=== PATIENT | female | born 1940 | race Caucasian/White ===

== ENCOUNTER 2019-02-19 09:15 | Emergency (ER) | payer MEDICARE, BC ==
[2019-02-19] MEDS ORDERED: Sodium Chloride 0.9% 10 ML Syringe FLUSH PRN ×2 (09:34→09:40)
[2019-02-19] MEDS ORDERED: Ondansetron 4 MG/2 ML SDV IVPUSH ONE (09:34)
[2019-02-19] MEDS ORDERED: Sodium Chloride 0.9% 1,000 ML IV STA (09:34)
[2019-02-19] MEDS ORDERED: HYDROmorphone 0.5 MG/0.5 ML Syringe IVPUSH ONE ×2 (09:35→12:23)
[2019-02-19] MEDS ORDERED: Diatrizoate Meglumine/Diatrizoate Sodium 37% 120 ML Bottle PO ONE (09:40)
[2019-02-19] MEDS ORDERED: Iopamidol 612 MG/ML 100 ML Bottle IVPUSH ONE (09:40)
--- NOTE | 2019-02-19 11:56 | CT ---
CT abdomen and pelvis Technique: Multiple axial sections were obtained from above the dome of the diaphragm inferiorly through the pubic symphysis. Intravenous and oral contrast was utilized. Delayed images were also obtained through the bladder. Comparison: No prior CT abdomen or pelvis exam is available, previous right upper quadrant abdominal ultrasound of 07/01/10 is available. Findings: Visualized lung bases show nothing acute. Contrast noted within the distal esophagus with small hiatal hernia. Liver shows a cyst within the posterior left lobe measuring 4.0 cm. No additional liver abnormality is appreciated. Surgical clips are noted from prior cholecystectomy. Liver shows no focal abnormality. Adrenal glands show no nodule. Kidneys show symmetric contrast enhancement. Cyst is noted within the left kidney measuring 1.6 cm. No additional abnormalities are seen within the kidneys. Adrenal glands show no nodule. Pancreas is within normal limits. Aorta shows no aneurysm with atherosclerotic calcification being seen. No retroperitoneal adenopathy is seen. No mesenteric abnormalities are seen. No pelvic mass or adenopathy is seen. No free fluid or inflammatory change is seen. Appendix not visualized with certainty. No free fluid or inflammatory change is seen. Delayed images show contrast within the ureters which show no dilatation. Contrast is noted within the bladder. There is low density filling defect posteriorly on the left side within the contrast-filled bladder. Uncertain if this represents sediment or intraluminal bladder mass. Bone window settings were reviewed which show mild degenerative change within the spine. No acute osseous finding is appreciated. Impression: 1. Small hiatal hernia with gastroesophageal reflux of contrast. 2. Filling defect within the contrast filled bladder on the left side. As mentioned above, uncertain if this is due to layering sediment or represents bladder mass. 3. Other findings as noted above believed to be incidental. Nothing acute is otherwise seen. Diagnostic code #9 This report was dictated in [place] Standard Time
--- NOTE | 2019-02-19 13:32 | EDM.PDOC ---
ED HPI GENERAL MEDICAL PROBLEM - General Chief Complaint: Abdominal Pain Stated Complaint: ABDOMINAL PAIN Time Seen by Provider: 02/19/19 09:26 Source of Information: Reports: Patient History Limitations: Reports: No Limitations - History of Present Illness INITIAL COMMENTS - FREE TEXT/NARRATIVE: The patient presents with upper abdominal pain, nausea, vomiting and diarrhea. This all started this weekend. She developed nausea, vomiting and some diarrhea. She then developed pain in her upper abdomen today. She has not been around anyone who is sick and she has not eaten any bad food. She does not have a gallbladder. She still will get pain in the upper abdomen at times. This is not related to her current symptoms. She has no fever, chills or cough. She has no chest pain or shortness of breath. Onset: Gradual Duration: Day(s): (3) Location: Reports: Abdomen Quality: Reports: Sharp Severity: Moderate Improves with: Reports: None Worsens with: Reports: None Associated Symptoms: Reports: Nausea/Vomiting. Denies: Chest Pain, Cough, Fever /Chills, Headaches, Shortness of Breath Abdominal Pain Score (Numeric/FACES): 6 - Related Data Allergies Allergy/AdvReac Type Severity Reaction Status Date / Time rosuvastatin [From Crestor] Allergy Body Aches Verified 02/19/19 09:25 Home Meds: Home Meds Fluticasone Propionate [Flonase Allergy Relief] 1 spray NASBOTH ASDIRECTED PRN 02/19/19 [History] Hydrocodone/Acetaminophen [Hydrocodon-Acetaminophen 5-325] 1 - 2 each PO Q6HR PRN #10 tablet 02/19/19 [Rx] Ondansetron [Zofran ODT] 4 mg PO Q6H PRN #20 tab.dis 02/19/19 [Rx] Pravastatin Sodium 20 mg PO DAILY 02/19/19 [History] Past Medical History HEENT History: Reports: Cataract, Impaired Vision, Sinusitis Other HEENT History: wears eyeglasses. Allergies. Cardiovascular History: Reports: High Cholesterol Gastrointestinal History: Reports: GERD Genitourinary History: Reports: UTI, Recurrent [employer] History: Reports: - Infectious Disease History Infectious Disease History: Reports: Chicken Pox, Measles, Mumps - Past Surgical History HEENT Surgical History: Reports: Cataract Surgery GI Surgical History: Reports: Cholecystectomy, Colonoscopy Musculoskeletal Surgical History: Reports: Knee Replacement Social & Family History - Tobacco Use Smoking Status *Q: Never Smoker Second Hand Smoke Exposure: No - Caffeine Use Caffeine Use: Reports: Coffee, Soda - Recreational Drug Use Recreational Drug Use: No ED ROS GENERAL - Review of Systems Review Of Systems: See Below Constitutional: Reports: No Symptoms HEENT: Reports: No Symptoms Respiratory: Reports: No Symptoms Cardiovascular: Reports: No Symptoms Endocrine: Reports: No Symptoms GI/Abdominal: Reports: Abdominal Pain, Diarrhea, Nausea, Vomiting : Reports: No Symptoms Musculoskeletal: Reports: No Symptoms ED EXAM, GI/ABD - Physical Exam Exam: See Below Exam Limited By: No Limitations General Appearance: Alert, No Apparent Distress Ears: Normal External Exam Nose: Normal Inspection Head: Atraumatic, Normocephalic Neck: Normal Inspection Respiratory/Chest: No Respiratory Distress, Lungs Clear, Normal Breath Sounds Cardiovascular: Regular Rate, Rhythm, No Edema, No Murmur GI/Abdominal Exam: Soft, No Organomegaly, No Mass, Tender (Mild tenderness to the upper abdomen) Back Exam: Normal Inspection Course - Vital Signs Last Recorded V/S: Last Vital Signs Temp 97.2 F 02/19/19 09:20 Pulse 74 02/19/19 09:20 Resp 18 02/19/19 09:20 BP 139/71 02/19/19 09:20 Pulse Ox 96 02/19/19 09:20 - Orders/Labs/Meds Orders: Active Orders 24 hr Category Date Time Status Peripheral IV Care [RC] . DIRECTED Care 02/19/19 09:35 Active Sodium Chloride 0.9% [Saline Flush] Med 02/19/19 09:34 Active 10 ml FLUSH ASDIRECTED PRN Sodium Chloride 0.9% [Saline Flush] Med 02/19/19 09:40 Active 10 ml FLUSH ONETIME PRN ED Antiemetic Medication Reflex [OM.PC] Stat Oth 02/19/19 09:34 Ordered Peripheral IV Insertion Adult [OM.PC] Stat Oth 02/19/19 09:34 Ordered Medication Orders Sodium Chloride (Saline Flush) 10 ml FLUSH ASDIRECTED PRN PRN Reason: Keep Vein Open Last Admin: 02/19/19 09:35 Dose: 10 ml Sodium Chloride (Saline Flush) 10 ml FLUSH ONETIME PRN PRN Reason: IV FLUSH Last Admin: 02/19/19 11:08 Dose: 10 ml Labs: Laboratory Tests 02/19/19 02/19/19 02/19/19 Range/Units 09:35 09:35 11:55 WBC 5.84 (3.98-10.04) K/mm3 RBC 4.85 (3.98-5.22) M/mm3 Hgb 15.2 (11.2-15.7) gm/dl Hct 43.8 (34.1-44.9) % MCV 90.3 (79.4-94.8) fl MCH 31.3 (25.6-32.2) pg MCHC 34.7 (32.2-35.5) g/dl RDW Std Deviation 41.1 (36.4-46.3) fL Plt Count 179 L (182-369) K/mm3 MPV 9.9 (9.4-12.3) fl Neut % (Auto) 82.8 H (34.0-71.1) % Lymph % (Auto) 12.0 L (19.3-51.7) % [place] % (Auto) 4.6 L (4.7-12.5) % Eos % (Auto) 0.2 L (0.7-5.8) Baso % (Auto) 0.2 (0.1-1.2) % Neut # (Auto) 4.84 (1.56-6.13) K/mm3 Lymph # (Auto) 0.70 L (1.18-3.74) K/mm3 [place] # (Auto) 0.27 (0.24-0.36) K/mm3 Eos # (Auto) 0.01 L (0.04-0.36) K/mm3 Baso # (Auto) 0.01 (0.01-0.08) K/mm3 Sodium 142 (136-145) mEq/L Potassium 3.5 (3.5-5.1) mEq/L Chloride 104 (98-107) mEq/L Carbon Dioxide 25 (21-32) mEq/L Anion Gap 16.5 H (5-15) BUN 12 (7-18) mg/dL Creatinine 0.7 (0.55-1.02) mg/dL Est Cr Clr Drug Dosing 51.54 mL/min Estimated GFR (MDRD) > 60 (>60) mL/min BUN/Creatinine Ratio 17.1 (14-18) Glucose 139 H (83-115) mg/dL Calcium 8.9 (8.5-10.1) mg/dL Total Bilirubin 0.5 (0.2-1.0) mg/dL AST 23 (15-37) U/L ALT 37 (14-59) U/L Alkaline Phosphatase 55 (46-116) U/L Total Protein 7.1 (6.4-8.2) g/dl Albumin 3.8 (3.4-5.0) g/dl Globulin 3.3 gm/dL Albumin/Globulin Ratio 1.2 (1-2) Lipase 87 (73-393) U/L Urine Color Yellow (Yellow) Urine Appearance Clear (Clear) Urine pH 6.5 (5.0-8.0) Ur Specific [place] 1.015 (1.005-1.030) Urine Protein Negative (Negative) Urine Glucose (UA) Negative (Negative) Urine Ketones 1+ H (Negative) Urine Occult Blood Trace-intact H (Negative) Urine Nitrite Negative (Negative) Urine Bilirubin Negative (Negative) Urine Urobilinogen 0.2 (0.2-1.0) Ur Leukocyte Esterase Negative (Negative) Urine RBC 5-10 H (0-5) /hpf Urine WBC 0-5 (0-5) /hpf Ur Squamous Epith Cells 0-5 (0-5) /hpf Amorphous Sediment Few H (NOT SEEN) /hpf Urine Bacteria Few (FEW) /hpf Urine Mucus Not seen (FEW) /hpf Meds: Medications Generic Name Dose Route Start Last Admin Trade Name Freq PRN Reason Stop Dose Admin Sodium Chloride 10 ml 02/19/19 09:34 02/19/19 09:35 Saline Flush FLUSH 10 ml ASDIRECTED PRN Administration Keep Vein Open Sodium Chloride 10 ml 02/19/19 09:40 02/19/19 11:08 Saline Flush FLUSH 10 ml ONETIME PRN Administration IV FLUSH Discontinued Medications Generic Name Dose Route Start Last Admin Trade Name Freq PRN Reason Stop Dose Admin Diatrizoate Meglum/Diatrizoate Sod 120 ml 02/19/19 09:40 02/19/19 11:08 Gastrografin 37% PO 02/19/19 09:41 90 ml ONETIME ONE Administration Hydromorphone HCl 0.25 mg 02/19/19 09:35 02/19/19 09:47 Dilaudid IVPUSH 02/19/19 09:36 0.25 mg ONETIME ONE Administration Hydromorphone HCl 0.25 mg 02/19/19 12:23 02/19/19 12:56 Dilaudid IVPUSH 02/19/19 12:24 0.25 mg ONETIME ONE Administration Sodium Chloride 1,000 mls @ 1,000 mls/hr 02/19/19 09:34 02/19/19 09:49 Normal Saline IV 02/19/19 10:33 1,000 mls/hr .BOLUS STA Administration Iopamidol 100 ml 02/19/19 09:40 02/19/19 11:08 Isovue-300 (61%) IVPUSH 02/19/19 09:41 100 ml ONETIME ONE Administration Ondansetron HCl 4 mg 02/19/19 09:34 02/19/19 09:45 Zofran IVPUSH 02/19/19 09:35 4 mg ONETIME ONE Administration - Re-Assessments/Exams Free Text/Narrative Re-Assessment/Exam: 02/19/19 14:08 I ordered an IV NS 1L bolus, zofran 4mg IV, dilaudid 0.25mg IV, labs, UA and a CT of her abdomen and pelvis. Her CBC looks good. Her glucose is elevated at 139. Her anion gap is elevated at 16.5. Her UA shows no UTI. Her CT shows small hiatal hernia within the gastroesophageal reflux of contrast. Filling defect within the contrast filled bladder on the left side. As mentioned above , uncertain if this is due to layering sediment or represents bladder mass. Other findings as noted above believed to be incidental. Nothing acute is otherwise seen. I did an US and there was no bladder mass but there was small amount of debris. Departure - Departure Time of Disposition: 13:30 Disposition: Home, Self-Care 01 Condition: Good Clinical Impression: Gastroenteritis - Discharge Information *PRESCRIPTION DRUG MONITORING PROGRAM REVIEWED*: No *COPY OF PRESCRIPTION DRUG MONITORING REPORT IN PATIENT BRAULIO: No Prescriptions: Hydrocodone/Acetaminophen [Hydrocodon-Acetaminophen 5-325] 1 - 2 each PO Q6HR PRN #10 tablet PRN Reason: Pain Ondansetron [Zofran ODT] 4 mg PO Q6H PRN #20 tab.dis PRN Reason: Nausea\vomiting Instructions: Viral Gastroenteritis, Adult, [id number] Referrals: PCP,None [Primary Care Provider] - Forms: ED Department Discharge Additional Instructions: Drink plenty of fluids and advance your diet as tolerated. Take the zofran every 6 hours as needed for nausea and vomiting. Take the hydrocodone as needed for pain. Please return if you are worse. Sepsis Event Note - Evaluation Sepsis Screening Result: No Definite Risk - Focused Exam Vital Signs: Vital Signs Temp Pulse Resp BP Pulse Ox 02/19/19 09:20 97.2 F 74 18 139/71 96 Date Exam was Performed: 02/19/19 Time Exam was Performed: 14:05 - My Orders Last 24 Hours: My Active Orders 02/19/19 09:34 Sodium Chloride 0.9% [Saline Flush] 10 ml FLUSH ASDIRECTED PRN ED Antiemetic Medication Reflex [OM.PC] Stat Peripheral IV Insertion Adult [OM.PC] Stat 02/19/19 09:35 Peripheral IV Care [RC] . DIRECTED 02/19/19 09:40 Sodium Chloride 0.9% [Saline Flush] 10 ml FLUSH ONETIME PRN - Assessment/Plan Last 24 Hours: My Active Orders 02/19/19 09:34 Sodium Chloride 0.9% [Saline Flush] 10 ml FLUSH ASDIRECTED PRN ED Antiemetic Medication Reflex [OM.PC] Stat Peripheral IV Insertion Adult [OM.PC] Stat 02/19/19 09:35 Peripheral IV Care [RC] . DIRECTED 02/19/19 09:40 Sodium Chloride 0.9% [Saline Flush] 10 ml FLUSH ONETIME PRN
--- NOTE | 2019-02-19 14:01 | US ---
Pelvic ultrasound limited: Multiple real-time images of the bladder were obtained. No intraluminal abnormality is seen as questioned on prior CT exam. There does appear to be some debris in this area. This appears to be in the dependent portion of the bladder on supine positioning. Impression: 1. Small amount of debris seen posteriorly. No bladder mass is seen. Diagnostic code #2 This report was dictated in [place] Standard Time
== END 2019-02-19 13:50 | disposition home or self-care (01) ==
LOC: JD.ED 09:15
DX: K52.9 Noninfective gastroenteritis and colitis, unspecified (principal); E78.00 Pure hypercholesterolemia, unspecified; Z90.49 Acquired absence of other specified parts of digestive tract; Z88.8 Allergy status to other drugs, medicaments and biological substances; Z79.899 Other long term (current) drug therapy
CPT/HCPCS: 36415; 74177; 76857; 80053; 81001; 83690; 85025; 96361; 96374; 96375; 96376; 99284; J1170; J2405; J7030; Q9963; Q9967; 99283

== ENCOUNTER 2020-01-11 07:59 | Day surgery (SDC) | payer MEDICARE, BC ==
[~2020-01-11 07:59] MED LIST: Lactated Ringers 1,000 ML IV SCH; Lidocaine 1%/Sod Bicarbonate in NS 8.4% 1 ML Syringe IDERM PRN; Sodium Chloride 0.9% 10 ML Syringe FLUSH PRN
--- NOTE | 2020-01-11 08:21 | PCM.PREANE ---
Preanesthetic Assessment - Procedure Proposed Procedure: Colonoscopy - Anesthesia/Transfusion/Family Hx Anesthesia History: Prior Anesthesia Without Reaction Family History of Anesthesia Reaction: No - Review of Systems General: No Symptoms Pulmonary: No Symptoms Cardiovascular: No Symptoms Gastrointestinal: Other (GERD, no symptoms today. ) Neurological: Pre-Existing Deficit (Balance Disorder/Dizziness) Other: Reports: Sinus Problem (Allergic Rhinitis) - Physical Assessment NPO Status Date: 01/10/20 NPO Status Time: 23:00 Vital Signs: Last Vital Signs Temp 36.8 C 01/11/20 07:55 Pulse 62 01/11/20 07:55 Resp 16 01/11/20 07:55 BP 133/58 L 01/11/20 07:55 Pulse Ox 96 01/11/20 07:55 Height: 1.6 m Weight: 63.957 kg ASA Class: 2 Mental Status: Alert & Oriented x3 Airway Class: Mallampati = 2 Dentition: Reports: Partial (Upper) Thyro-Mental Finger Breadths: 2 Mouth Opening Finger Breadths: 3 ROM/Head Extension: Full Lungs: Clear to Auscultation, Normal Respiratory Effort Cardiovascular: Regular Rate, Regular Rhythm - Allergies Allergies/Adverse Reactions: Allergies Allergy/AdvReac Type Severity Reaction Status Date / Time guaifenesin [From Mucinex] Allergy Vomiting Verified 01/10/20 13:53 rosuvastatin [From Crestor] Allergy Body Aches Verified 01/10/20 13:53 - Acknowledgements Anesthesia Type Planned: MAC Pt an Appropriate Candidate for the Planned Anesthesia: Yes Alternatives and Risks of Anesthesia Discussed w Pt/Guardian: Yes Pt/Guardian Understands and Agrees with Anesthesia Plan: Yes PreAnesthesia Questionnaire HEENT History: Reports: Allergic Rhinitis, Cataract, Impaired Vision, Sinusitis Other HEENT History: wears glasses, bilateral dry eyes, has partial Cardiovascular History: Reports: High Cholesterol Respiratory History: Reports: None Gastrointestinal History: Reports: GERD Genitourinary History: Reports: UTI, Recurrent [employer] History: Reports: , Other (See Below) Other OB/BYN History: post menopausal Musculoskeletal History: Reports: Other (See Below) Other Musculoskeletal History: osteopenia, foot pain Neurological History: Reports: Other (See Below) Other Neuro History: balance disorder, dizziness Psychiatric History: Reports: None Endocrine/Metabolic History: Reports: None Hematologic History: Reports: None Immunologic History: Reports: None Oncologic (Cancer) History: Reports: None Dermatologic History: Reports: None - Infectious Disease History Infectious Disease History: Reports: None - Past Surgical History HEENT Surgical History: Reports: Cataract Surgery Cardiovascular Surgical History: Reports: None Respiratory Surgical History: Reports: None GI Surgical History: Reports: Cholecystectomy, Colonoscopy Female Surgical History: Reports: None Male Surgical History: Reports: None Endocrine Surgical History: Reports: None Neurological Surgical History: Reports: None Musculoskeletal Surgical History: Reports: Knee Replacement Oncologic Surgical History: Reports: None Dermatological Surgical History: Reports: None - SUBSTANCE USE Tobacco Use Status *Q: Never Tobacco User Recreational Drug Use History: No - HOME MEDS Home Medications: Home Meds Fluticasone Propionate [Flonase Allergy Relief] 1 spray NASBOTH ASDIRECTED PRN 02/19/19 [History] Pravastatin Sodium 20 mg PO DAILY 02/19/19 [History] Aspirin 81 mg PO DAILY 01/10/20 [History] Calcium Carbonate [Calcium] 500 mg PO DAILY 01/10/20 [History] Cetirizine HCl [Zyrtec] 10 mg PO DAILY 01/10/20 [History] Cholecalciferol (Vitamin D3) [Vitamin D3] 2,000 unit PO DAILY 01/10/20 [History] Ketotifen Fumarate [[place]] 1 drop EYEBOTH BID PRN 01/10/20 [History] Multivitamin 1 tab PO DAILY 01/10/20 [History] Naproxen Sodium [Aleve] 220 mg PO BID PRN 01/10/20 [History] Omeprazole Magnesium [Prilosec Otc] 20 mg PO DAILY 01/10/20 [History] Polyvinyl Alcohol/Povidone/Pf [Refresh Classic Eye Drops] 1 drop EYEBOTH Q4H PRN 01/10/20 [History] Ubidecarenone [Coq-10] 100 mg PO DAILY 01/10/20 [History] Vit A/C/E/Zinc/Selenium/Copper [Vision Formula Tablet] 1 tab PO DAILY 01/10/20 [History] - CURRENT (IN HOUSE) MEDS Current Meds: Current Medications Lactated Ringer's (Ringers, Lactated) 1,000 mls @ 125 mls/hr IV ASDIRECTED SHAINA Stop: 01/11/20 23:00 Lidocaine/Sodium Bicarbonate (Buffered Lidocaine 1% In Ns 8.4%) 0.25 ml IDERM ONETIME PRN PRN Reason: Prior to IV Start Stop: 01/11/20 18:00 Sodium Chloride (Saline Flush) 10 ml FLUSH ASDIRECTED PRN PRN Reason: Keep Vein Open Stop: 01/11/20 18:00
[2020-01-11] MEDS ORDERED: fentaNYL 100 MCG/2 ML SDV ONE (08:28)
[2020-01-11] MEDS ORDERED: Lidocaine 1% 4 ML ONE (08:28)
[2020-01-11] MEDS ORDERED: Propofol 200 MG/20 ML SDV ONE (08:28)
--- NOTE | 2020-01-11 09:34 | PCM48HPAN ---
Post Anesthesia Note - EVALUATION WITHIN 48HRS OF ANESTHETIC Vital Signs in Normal Range: Yes Patient Participated in Evaluation: Yes Respiratory Function Stable: Yes Airway Patent: Yes Cardiovascular Function Stable: Yes Hydration Status Stable: Yes Pain Control Satisfactory: Yes Nausea and Vomiting Control Satisfactory: Yes Mental Status Recovered: Yes Vital Signs: Last Vital Signs Temp 36.8 C 01/11/20 07:55 Pulse 62 01/11/20 07:55 Resp 16 01/11/20 07:55 BP 133/58 L 01/11/20 07:55 Pulse Ox 96 01/11/20 07:55 0928 104/59 62 16 98.1F 93%
--- NOTE | 2020-01-11 09:38 | PCM.PRNOTE ---
- Free Text/Narrative Note: Date: 01/11/2020 Procedure: diagnostic colonoscopy Indication: positive cologuard test Endoscopist: Shilo Mckeon MD Findings; decent prep. Cecum reached. No polyps. Diverticular disease and minor internal hemorrhoids. Detailed Report: The patient was taken to the endoscopy suite and placed in left lateral dec ubitus position. Time out was performed and monitored anesthesia care initiated. A small anterior external hemorrhoidal skin tag was noted. Digital exam was unremarkable. The colonoscope was inserted and advanced to the cecum. The appendiceal orifice was visualized. The scope was slowly withdrawn and mucosal surfaces carefully inspected. No polyps were identified. there was diverticular disease in the sigmoid colon. On retroflexion in the rectum internal hemorrhoids were seen. Air was suctioned and the scope withdrawn. The patient tolerated the procedure well.
== END 2020-01-11 10:01 | disposition home or self-care (01) ==
LOC: JD.SDS 07:59
PROVIDERS: ATTEND Surgery
DX: K57.30 Diverticulosis of large intestine without perforation or abscess without bleeding (principal); K64.4 Residual hemorrhoidal skin tags; K64.8 Other hemorrhoids; E78.00 Pure hypercholesterolemia, unspecified; Z98.890 Other specified postprocedural states; Z88.8 Allergy status to other drugs, medicaments and biological substances; Z90.49 Acquired absence of other specified parts of digestive tract; Z79.899 Other long term (current) drug therapy
CPT/HCPCS: 45378; J2001; J2704; J3010; J7120

== ENCOUNTER 2022-08-28 17:14 | Emergency (ER) | payer MEDICARE, BC ==
[2022-08-28] MEDS ORDERED: Sucralfate Suspension 1 GM/10 ML Cup PO ONE (17:29)
[2022-08-28] MEDS ORDERED: Famotidine 20 MG/2 ML SDV IVPUSH ONE (17:30)
[2022-08-28 18:07] LABS: BASOPHILS ABSOLUTE AUTO 0.02 K/mm3 (0.01-0.08); BASOPHILS PERCENT AUTO 0.3 % (0.1-1.2); EOSINOPHILS ABSOLUTE AUTO 0.08 K/mm3 (0.04-0.36); EOSINOPHILS PERCENT AUTO 1.3 (0.7-5.8); HEMATOCRIT 42.8 % (34.1-44.9); HEMOGLOBIN 14.4 gm/dl (11.2-15.7); LYMPHOCYTES ABSOLUTE AUTO 1.09 K/mm3 (1.18-3.74); LYMPHOCYTES PERCENT AUTO 17.5 % (19.3-51.7); MEAN CORPUSCULAR HGB CONC 33.6 g/dl (32.2-35.5); MEAN CORPUSCULAR VOLUME 98.2 fl (79.4-94.8); MEAN PLATELET VOLUME 8.9 fl (9.4-12.3); MONOCYTES ABSOLUTE AUTO 0.57 K/mm3 (0.24-0.36); MONOCYTES PERCENT AUTO 9.2 % (4.7-12.5); NEUTROPHILS ABSOLUTE AUTO 4.46 K/mm3 (1.56-6.13); NEUTROPHILS PERCENT AUTO 71.7 % (34.0-71.1); PLATELET COUNT,PLT 174 K/mm3 (182-369); RED BLOOD CELL COUNT 4.36 M/mm3 (3.98-5.22); WHITE BLOOD CELL COUNT,WBC 6.22 K/mm3 (3.98-10.04)
[2022-08-28 18:24] LABS: INR 0.97; PROTHROMBIN TIME 10.4 SECONDS (9.7-12.0)
[2022-08-28 18:25] LABS: D-DIMER QUANTITATIVE 0.39 mg/L (0.19-0.50)
[2022-08-28 18:26] LABS: PTT,PARTIAL THROMBOPLSTIN TIME 23.6 SECONDS (21.7-31.4)
[2022-08-28 18:30] LABS: ALANINE AMINOTRANSFERASE,ALT 26 U/L (14-59); ALBUMIN 3.6 g/dl (3.4-5.0); ALKALINE PHOSPHATASE 66 U/L (46-116); ANION GAP 12.9 (5-15); ASPARTATE AMNIOTRANSFERASE,AST 20 U/L (15-37); BILIRUBIN TOTAL 0.5 mg/dL (0.2-1.0); BLOOD UREA NITROGEN,BUN 6 mg/dL (7-18); BUN/CREATININE RATIO 7.5 (14-18); CALCIUM 9.2 mg/dL (8.5-10.1); CARBON DIOXIDE,CO2 28 mEq/L (21-32); CHLORIDE,CL 103 mEq/L (98-107); CREATININE 0.8 mg/dL (0.55-1.02); ESTIMATED GFR 74 mL/min (>60); GLUCOSE RANDOM 106 mg/dL (70-99); POTASSIUM,K 3.9 mEq/L (3.5-5.1); PROTEIN TOTAL,TP 7.1 g/dl (6.4-8.2); SODIUM,NA 140 mEq/L (136-145); TROPONIN I HIGH SENSITIVITY 5 pg/mL (<=51)
[2022-08-28] MEDS ORDERED: Famotidine 20 MG Tab PO ONE (19:29)
== END 2022-08-28 20:05 | disposition home or self-care (01) ==
LOC: JD.ED 17:14
DX: K29.40 Chronic atrophic gastritis without bleeding (principal); K21.9 Gastro-esophageal reflux disease without esophagitis; Z88.8 Allergy status to other drugs, medicaments and biological substances; Z79.82 Long term (current) use of aspirin; Z79.899 Other long term (current) drug therapy
CPT/HCPCS: 36415; 71045; 80053; 83690; 84484; 85025; 85379; 85610; 85730; 93005; 96374; 99285; A9270; J3490; 93010; 99284